=== PATIENT | male | born 1970 ===

== ENCOUNTER 2017-11-07 09:02 | Inpatient (IN) | payer OTHER ==
[2017-11-07] MEDS ORDERED: Albuterol/Ipratropium NEB.SOL* Albuterol 2.5 MG/Ipratropium 0.5 MG 3 ML ONE ×2 (09:07→09:17)
[2017-11-07] MEDS ORDERED: methylPREDNISolone 125 MG* 2 ML VIAL ONE (09:07)
[2017-11-07] MEDS ORDERED: NS 0.9% 1000 ML* 1,000 ML IV ONE (09:07)
[2017-11-07] MEDS ORDERED: methylPREDNISolone 125 MG* 2 ML VIAL IV ONE (09:07)
[2017-11-07] MEDS: Albuterol/Ipratropium NEB.SOL* Albuterol 2.5 MG/Ipratropium 0.5 MG 3 ML INH SCH ×7 (09:13→22:48)
[2017-11-07] MEDS ORDERED: Piperacillin/Tazobac ADVAN(*) 3.375 GM in NS 0.9% 100 ML* 100 ML IVPB ONE (09:16)
[2017-11-07 09:23] LABS: ABS Basophils 0.1 10^3/ul (0-0.2); ABS Eosinophils 0 10^3/ul (0-0.6); ABS Lymphocytes 0.9 10^3/ul (1.0-4.8); ABS Monocytes 1.1 10^3/ul (0-0.8); ABS Neutrophils 18.9 10^3/ul (1.5-7.7); ABS Nucleated RBC 0 10^3/ul; Eosinophil % 0 % (0-6); Hematocrit 45 % (42-52); Hemoglobin 15.1 g/dl (14.0-18.0); Lymphocyte % 4.4 % (25-47); Mean Corpuscular HGB Conc 34 g/dl (31-36); Mean Corpuscular Hemoglobin 29 pg (27-31); Mean Corpuscular Volume 86 fL (80-94); Mean Platelet Volume 8 um3 (7.4-10.4); Nucleated Red Blood Cells % 0; Platelet Count 210 10^3/ul (150-450); Red Blood Count 5.23 10^6/ul (4.0-5.4); Red Cell Distribution Width 15 % (10.5-15)
[2017-11-07] MEDS ORDERED: Magnesium Sulfate 2 GM IV* 2 GM/50 ML BAG IVPB ONE (09:30)
[2017-11-07] MEDS ORDERED: Magnesium Sulfate 2 GM IV* 2 GM/50 ML BAG ONE (09:31)
--- NOTE | 2017-11-07 09:31 | RAD ---
HISTORY: Shortness of breath COMPARISONS: None VIEWS: 1: frontal portable view of the chest at 9:15 AM FINDINGS: LINES AND TUBES: None. CARDIOMEDIASTINAL SILHOUETTE: The cardiomediastinal silhouette is normal for portable technique. PLEURA: The costophrenic angles are sharp. No pleural abnormalities are noted. LUNG PARENCHYMA: There is multifocal and confluent alveolar opacification throughout both lung hughes. ABDOMEN: The upper abdomen is clear. There is no subphrenic gas. BONES AND SOFT TISSUES: No bone or soft tissue abnormalities are noted. IMPRESSION: MULTIFOCAL CONSOLIDATION THROUGHOUT BOTH LUNGS.
[2017-11-07 09:42] LABS: EGFR Non-African American 88.9 (>60)
[2017-11-07] MEDS: Cefepime 2 GM in Dextrose(*) 2 GM/50 ML BAG IV SCH ×2 (11:54→22:19)
[2017-11-07] MEDS: Azithromycin IV(*) 500 MG in NS 0.9% 250 ML* 250 ML IVPB SCH (12:46)
[2017-11-07] MEDS: Enoxaparin(*) 40 MG/0.4 ML SYR SUBCUT SCH (12:47)
[2017-11-07 12:52] LABS: Urine Appearance Clear; Urine Blood Negative (Negative); Urine Color Yellow; Urine Ketones 2+ (Negative); Urine Protein Negative (Negative); Urine Specific Gravity 1.023 (1.010-1.030); Urine Urobilinogen Negative (Negative)
--- NOTE | 2017-11-07 18:09 | ED ---
Iggy Bernard Nilda, scribed for Stef Mishra MD on 11/07/17 at 0935 . Shortness of Breath - HPI Summary HPI Summary: LVL 5 Caveat: Hx and PE limited due to pt in respiratory distress. This patient is a 46 year old M BIBA from [address] [place] [address] accompanied by police with a chief complaint of SOB with wheezing since earlier today. Pt went to [facility] due to respiratory distress and CP for a day. O2Sat was at 80% there. Pt taken to ED. On arrival to ED, pt unable to speak full sentences. He is in respiratory distress. Symptoms aggravated by nothing and minimally alleviated by neb treatment given ACID CORRECTION HAND. No PMHx asthma. - History of Current Complaint Time Seen by Provider: 11/07/17 09:07 Hx Obtained From: EMS, Other: - Nurse Hx From Patient Unobtainable Due To: Extremis - LVL 5 Caveat: Hx and PE limited due to pt in respiratory distress. Onset/Duration: Sudden Onset, Lasting Minutes, Still Present Timing: Constant Current Severity: Severe Dyspnea At: Rest Aggrevating Factors: Nothing Alleviating Factors: Nothing Associated Signs & Symptoms: Wheezing - Allergy/Home Medications Allergies/Adverse Reactions: Allergies Allergy/AdvReac Type Severity Reaction Status Date / Time No Known Allergies Allergy Verified 11/07/17 09:40 Home Medications: Home Medications Artificial Tears* 15 ML BTL [Polyvinyl Alcohol 1.4% OPTH*] 1 drop RIGHT EYE QID 11/07/17 [History Confirmed 11/07/17] DULoxetine DR CAP* [Cymbalta CAP*] 30 mg PO BID 11/07/17 [History Confirmed ] Erythromycin OPTH OINT* [Erythromycin 0.5% OPTH OINT*] 1 applic RIGHT EYE BEDTIME 11/07/17 [History Confirmed 11/07/17] PMH/Surg Hx/FS Hx/Imm Hx Respiratory History: Denies: Hx Asthma EENT History: Denies: Hx Deafness - Family History Known Family History: Positive: Unknown - LVL 5: pt in respiratory distress - Social History Occupation: Unemployed Lives: Prison - [address] [place] [id number] Review of Systems - ROS Summary Review of Systems Summary: LVL 5 Caveat: Hx and PE limited due to pt in respiratory distress. Positive: Chest Pain Positive: Shortness Of Breath, Other - wheezing All Other Systems Reviewed And Are Negative: No Physical Exam - Summary Physical Exam Summary: LVL 5 Caveat: Hx and PE limited due to pt in respiratory distress. VITAL SIGNS: Reviewed. GENERAL: Patient is a well-developed and nourished male who is in acute respiratory distress. HEAD AND FACE: No signs of trauma. No ecchymosis, hematomas or skull depressions. No sinus tenderness. EYES: PERRLA, EOMI x 2, No injected conjunctiva, no nystagmus. EARS: Hearing grossly intact. Ear canals and tympanic membranes are within normal limits. MOUTH: Oropharynx within normal limits. NECK: Supple, trachea is midline, no adenopathy, no JVD, no carotid bruit, no c- spine tenderness, neck with full ROM. CHEST: Symmetric, no tenderness at palpation LUNGS: Tachypenic, bilat wheezing with bilat crackles CVS: Tachycardic, S1 and S2 present, no murmurs or gallops appreciated. ABDOMEN: Soft, non-tender. No signs of distention. No rebound no guarding, and no masses palpated. Bowel sounds are normal. Intercostal abdominal retraction. EXTREMITIES: no edema, no cyanosis or clubbing. NEURO: Lethargic, unable to speak in full sentences, unable to give Hx, GCS 14 SKIN: Dry and warm Triage Information Reviewed: Yes Vital Signs On Initial Exam: Initial Vitals Temp Pulse Resp BP Pulse Ox 98.2 F 89 44 148/78 86 11/07/17 09:03 11/07/17 09:03 11/07/17 09:03 11/07/17 09:03 11/07/17 09:03 Vital Signs Reviewed: Yes Completion Of Physical Exam Limited Due To: Level 5 - LVL 5 Caveat: Hx and PE limited due to pt in respiratory distress. Diagnostics - Vital Signs Vital Signs Temp Pulse Resp BP Pulse Ox 11/07/17 10:00 90 49 97 11/07/17 09:55 40 11/07/17 09:51 95 28 90 11/07/17 09:28 90 34 90 11/07/17 09:27 133/82 11/07/17 09:03 98.2 F 89 44 148/78 86 - Laboratory Lab Results: Lab Results 11/07/17 11/07/17 11/07/17 Range/Units 09:16 09:16 09:16 WBC 21.0 H (3.5-10.8) 10^3/ul RBC 5.23 (4.0-5.4) 10^6/ul Hgb 15.1 (14.0-18.0) g/dl Hct 45 (42-52) % MCV 86 (80-94) fL MCH 29 (27-31) pg MCHC 34 (31-36) g/dl RDW 15 (10.5-15) % Plt Count 210 (150-450) 10^3/ul MPV 8 (7.4-10.4) um3 Neut % (Auto) 89.9 H (38-83) % Lymph % (Auto) 4.4 L (25-47) % [place] % (Auto) 5.4 (1-9) % Eos % (Auto) 0 (0-6) % Baso % (Auto) 0.3 (0-2) % Absolute Neuts (auto) 18.9 H (1.5-7.7) 10^3/ul Absolute Lymphs (auto) 0.9 L (1.0-4.8) 10^3/ul Absolute Monos (auto) 1.1 H (0-0.8) 10^3/ul Absolute Eos (auto) 0 (0-0.6) 10^3/ul Absolute Basos (auto) 0.1 (0-0.2) 10^3/ul Absolute Nucleated RBC 0 10^3/ul Nucleated RBC % 0 Patient Temperature ABG pH (7.35-7.45) ABG pH (Temp Correct) ABG pCO2 (35-45) mmHg ABG pCO2 (Temp Corrct ABG pO2 (80-100) mmHg ABG pO2 (Temp Correct ABG HCO3 (19-31) mmol/L ABG O2 Saturation (95-98) % ABG Base Excess (-2.0-2.0) Respiration Rate Ventilator Type Vent Mode FiO2 Inspiratory Time PEEP Pressure Support Pressure Control EPAP IPAP BiPAP Sodium 134 (133-145) mmol/L Potassium 4.3 (3.5-5.0) mmol/L Chloride 98 L (101-111) mmol/L Carbon Dioxide 26 (22-32) mmol/L Anion Gap 10 (2-11) mmol/L BUN 16 (6-24) mg/dL Creatinine 0.91 (0.67-1.17) mg/dL Est GFR ( Amer) 114.4 (>60) Est GFR (Non-Af Amer) 88.9 (>60) BUN/Creatinine Ratio 17.6 (8-20) Glucose 91 (70-100) mg/dL Lactic Acid (0.5-2.0) mmol/L Calcium 9.8 (8.6-10.3) mg/dL Total Bilirubin 0.90 (0.2-1.0) mg/dL AST 156 H (13-39) U/L ALT 34 (7-52) U/L Alkaline Phosphatase 81 (34-104) U/L Total Creatine Kinase 2812 H (10-223) U/L CK-MB (CK-2) 9.1 H (0.6-6.3) ng/mL Troponin I 0.05 H* (<0.04) ng/mL C-Reactive Protein 220.95 H (< 5.00) mg/L B-Natriuretic Peptide 153 H ( - 100) pg/mL Total Protein 7.3 (6.4-8.9) g/dL Albumin 4.3 (3.2-5.2) g/dL Globulin 3.0 (2-4) g/dL Albumin/Globulin Ratio 1.4 (1-3) Influenza A (Rapid) (Negative) Influenza B (Rapid) (Negative) 11/07/17 11/07/17 11/07/17 Range/Units 09:16 09:30 09:54 WBC (3.5-10.8) 10^3/ul RBC (4.0-5.4) 10^6/ul Hgb (14.0-18.0) g/dl Hct (42-52) % MCV (80-94) fL MCH (27-31) pg MCHC (31-36) g/dl RDW (10.5-15) % Plt Count (150-450) 10^3/ul MPV (7.4-10.4) um3 Neut % (Auto) (38-83) % Lymph % (Auto) (25-47) % [place] % (Auto) (1-9) % Eos % (Auto) (0-6) % Baso % (Auto) (0-2) % Absolute Neuts (auto) (1.5-7.7) 10^3/ul Absolute Lymphs (auto) (1.0-4.8) 10^3/ul Absolute Monos (auto) (0-0.8) 10^3/ul Absolute Eos (auto) (0-0.6) 10^3/ul Absolute Basos (auto) (0-0.2) 10^3/ul Absolute Nucleated RBC 10^3/ul Nucleated RBC % Patient Temperature Not Reportable ABG pH 7.44 (7.35-7.45) ABG pH (Temp Correct) Not Reportable ABG pCO2 34 L (35-45) mmHg ABG pCO2 (Temp Corrct Not Reportable ABG pO2 53 L* (80-100) mmHg ABG pO2 (Temp Correct Not Reportable ABG HCO3 24.3 (19-31) mmol/L ABG O2 Saturation 90.9 L (95-98) % ABG Base Excess -0.4 (-2.0-2.0) Respiration Rate Not Reportable Ventilator Type Not Reportable Vent Mode Not Reportable FiO2 8 Inspiratory Time Not Reportable PEEP Not Reportable Pressure Support Not Reportable Pressure Control Not Reportable EPAP Not Reportable IPAP Not Reportable BiPAP Not Reportable Sodium (133-145) mmol/L Potassium (3.5-5.0) mmol/L Chloride (101-111) mmol/L Carbon Dioxide (22-32) mmol/L Anion Gap (2-11) mmol/L BUN (6-24) mg/dL Creatinine (0.67-1.17) mg/dL Est GFR ( Amer) (>60) Est GFR (Non-Af Amer) (>60) BUN/Creatinine Ratio (8-20) Glucose (70-100) mg/dL Lactic Acid 1.0 (0.5-2.0) mmol/L Calcium (8.6-10.3) mg/dL Total Bilirubin (0.2-1.0) mg/dL AST (13-39) U/L ALT (7-52) U/L Alkaline Phosphatase (34-104) U/L Total Creatine Kinase (10-223) U/L CK-MB (CK-2) (0.6-6.3) ng/mL Troponin I (<0.04) ng/mL C-Reactive Protein (< 5.00) mg/L B-Natriuretic Peptide ( - 100) pg/mL Total Protein (6.4-8.9) g/dL Albumin (3.2-5.2) g/dL Globulin (2-4) g/dL Albumin/Globulin Ratio (1-3) Influenza A (Rapid) Negative (Negative) Influenza B (Rapid) Negative (Negative) Result Diagrams: 11/07/17 09:16 11/07/17 09:16 Lab Statement: Any lab studies that have been ordered have been reviewed, and results considered in the medical decision making process. - Radiology CXR Radiology Interpretation Completed By: Radiologist - CXR, per radiologist, reveals multifocal consolidations throughout both lungs. Dr. Mishra has reviewed this radiology report. - EKG 905 Cardiac Rate: NL EKG Rhythm: Sinus Rhythm - 89 bpm EKG Interpretation: no ST elevation Re-Evaluation - Re-Evaluation First Eval Re-Evaluation Time: 09:48 Change: Improved Comment: Pt feeling better. Pt able to speak in some sentences. Vitals more stable. Course/Dx - Course Assessment/Plan: This patient is a 46 year old M BIBA from [address] [place] [address] [facility] accompanied by police with a chief complaint of SOB with wheezing since earlier today. Per nurse report, pt went to [facility] due to respiratory distress and CP for a day. O2Sat was at 80% there. Pt taken to ED. On arrival to ED, pt unable to speak full sentences. He is in respiratory distress. Symptoms aggravated by nothing and minimally alleviated by neb treatment given ACID CORRECTION HAND. No PMHx asthma. Medications include Cymbalta. 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 Pt was given Solu-Medrol, Zosyn, Magnesium, and multiple duo neb. It seems pt is obtunded and lethargic. With his respiratory distress, I offered pt intubation, however, he said yes but to wait if he turns around and to use intubation as last resort. Pending labs, EKG, and CXR. Test results reveal: WBC 21, CPK of 2812, CRP 220, and BMP of 153. Influenza A and B are negative. An EKG reveals NSR, 89 bpm, no ST elevation. CXR, per radiologist, reveals multifocal consolidations throughout both lungs. Dr. Mishra has reviewed this radiology report. Pt was started on Zosyn and added azithromycin to cover atypical organisms. The pt continues to have duo nebs, and he is in face mask at 8 L. Vitals are much more stable. Therefore, at this point I will hold the endotracheal intubation to keep airway open since he is getting better. Trop 0.05 probably secondary to demand ischemia. At this point I ve discussed the case with Dr. Herrera, who came down and assessed pt. He agrees with management up to this point. He also accepted pt for admission. Pt is stable, is improving but still critical. Dx respiratory failure, bilat PNA r/ o ARSD. - Diagnoses Differential Diagnosis/HQI/PQRI: Positive: Asthma, Bronchitis, CHF, COPD Exacerbation, DE, Pneumonia, Pulmonary Edema Provider Diagnoses: Bilateral pneumonia, r/o ARSD, Respiratory failure - Physician Notifications Discussed Care of Patient With: Deejay Herrera - Cardiology Time Discussed With Above Provider: 09:58 Instructed by Provider To: Admit As Inpatient - to ICU - Critical Care Time Critical Care Time: 75-104 min Discharge - Discharge Plan Condition: Stable Disposition: ADMITTED TO [facility] The documentation as recorded by the Iggy hays Nilda accurately reflects the service I personally performed and the decisions made by , Stef Mishra MD.
--- NOTE | 2017-11-07 19:12 | HP ---
ADMISSION HISTORY AND PHYSICAL: DATE OF ADMISSION: 11/07/17 REASON FOR ADMISSION: Pneumonia with respiratory failure. HISTORY OF PRESENT ILLNESS: The patient is a 46-year-old male who is incarcerated and was brought to the emergency room because of recent history of chest pain and increasing shortness of breath. In the ED, the patient was discovered to have diffuse pulmonary infiltrates and diffuse wheezing. He was treated with bronchodilator therapy and supplemental oxygen. Decision to intubate the patient was initially entertained, but the patient improved after broncho-dilator therapy and intubation was not considered necessary at that time. However, because of the patient's respiratory distress and degree of hypoxemia, admission to the intensive care unit was deemed necessary. There are no other apparent medical problems and the patient denies significant past medical history. OUTPATIENT MEDICATIONS: Cymbalta 30 mg p.o. b.i.d. ALLERGIES: There are no known drug allergies. SOCIAL HISTORY: The patient is currently incarcerated. There are no known issues with recent drug abuse. REVIEW OF SYSTEMS: Noncontributory. PHYSICAL EXAMINATION GENERAL: The patient was somnolent but aroused easily. VITAL SIGNS: Temp 99.3, blood pressure 144/100, heart rate 103, respiratory rate 32, O2 saturation 95% on nasal O2 at 15 L per minute. HEENT: Oropharynx is clear. NECK: Supple. LUNGS: There are coarse crackles in both lungs with expiratory wheezing throughout. CARDIAC: No murmurs or rubs. ABDOMEN: Nondistended. EXTREMITIES: Warm. No cyanosis or edema. ADMISSION DIAGNOSTIC STUDIES/LAB DATA: White count was 21,000. Electrolytes were normal. BUN and creatinine normal. C-reactive protein was 220. CPK was 2812. CK- MB was 9.1. Troponin I was 0.05. EKG showed normal sinus rhythm without acute ST- or T-wave changes. Chest x-ray showed patchy alveolar infiltrates bilateral, but much more predominant on the left. There is no cardiomegaly. IMPRESSION: Community-acquired pneumonia with associated respiratory failure. Pneumonia appears atypical by radiographic appearance. MANAGEMENT PLAN: Pneumonia will be treated with a combination of azithromycin and cefepime and the wheezing will be treated with bronchodilators. Will also evaluate for influenza. The patient will be monitored closely in the ICU for signs of progressive respiratory failure. CRITICAL CARE TIME: Sixty minutes. [id number]/[facility] #: [id number] [facility] HOSPITALKaila
[2017-11-08] MEDS ORDERED: Zolpidem TAB* 5 MG PO ONE (03:55)
[2017-11-08] MEDS: Albuterol/Ipratropium NEB.SOL* Albuterol 2.5 MG/Ipratropium 0.5 MG 3 ML INH SCH ×5 (03:55→19:30)
[2017-11-08 05:31] LABS: Hematocrit 39 % (42-52); Hemoglobin 12.8 g/dl (14.0-18.0); Mean Corpuscular HGB Conc 33 g/dl (31-36); Mean Corpuscular Hemoglobin 29 pg (27-31); Mean Corpuscular Volume 86 fL (80-94); Mean Platelet Volume 8 um3 (7.4-10.4); Platelet Count 196 10^3/ul (150-450); Red Blood Count 4.48 10^6/ul (4.0-5.4); Red Cell Distribution Width 15 % (10.5-15); White Blood Count 25.5 10^3/ul (3.5-10.8)
[2017-11-08 05:51] LABS: EGFR Non-African American 120.4 (>60)
--- NOTE | 2017-11-08 07:53 | RAD ---
INDICATION: Pneumonia. COMPARISON: Comparison is made with a prior study from one day earlier. TECHNIQUE: A portable view of the chest was obtained. FINDINGS: The heart is within normal limits in size. There are dense bilateral alveolar infiltrates. There is suggestion of a trace right pleural effusion. The infiltrates appear increased from the prior exam. IMPRESSION: DENSE BILATERAL ALVEOLAR INFILTRATES DEMONSTRATING INTERVAL PROGRESSION SUGGESTIVE OF PNEUMONIA OR ARDS.
[2017-11-08] MEDS ORDERED: traZODone TAB* 100 MG PO ONE (07:55)
[2017-11-08] MEDS: Cefepime 2 GM in Dextrose(*) 2 GM/50 ML BAG IV SCH (11:34)
[2017-11-08] MEDS: Enoxaparin(*) 40 MG/0.4 ML SYR SUBCUT SCH (11:58)
[2017-11-08] MEDS: Morphine INJ* 2 MG/ML 1 ML SYRINGE (TWO MG - NEW SYRINGE VERSION) IV PRN (11:58)
[2017-11-08] MEDS ORDERED: predniSONE TAB* 50 MG PO SCH (12:00)
[2017-11-08] MEDS ORDERED: Succinylcholine* 20 MG/ML 10 ML VIAL ONE ×2 (12:07→12:09)
[2017-11-08] MEDS ORDERED: fentaNYL* 50 MCG/ML 5 ML VIAL (250 MCG VIAL) ONE (12:09)
[2017-11-08] MEDS ORDERED: Propofol* 10 MG/ML 20 ML BTL IV PUSH ONE (12:09)
[2017-11-08] MEDS ORDERED: VECURONIUM BROMIDE 10 MG INJ ONE (12:09)
[2017-11-08] MEDS ORDERED: Etomidate* 2 MG/ML 20 ML VIAL (40 MG) ONE (12:09)
[2017-11-08] MEDS ORDERED: Midazolam* 1 MG/ML 10 ML VIAL (10 MG) ONE (12:09)
[2017-11-08] MEDS ORDERED: Propofol* 100 ML ONE ×4 (12:22→21:14)
[2017-11-08] MEDS ORDERED: VECURONIUM BROMIDE 10 MG INJ IV ONE ×2 (12:35→18:30)
[2017-11-08] MEDS ORDERED: fentaNYL PCA* 20 ML ONE (12:58)
[2017-11-08] MEDS ORDERED: NS 0.9% IV SCH ×6 (13:00→21:00)
[2017-11-08] MEDS ORDERED: fentaNYL PCA* 20 ML PCA SCH (13:00)
[2017-11-08] MEDS ORDERED: VECURONIUM BROMIDE IV SCH ×6 (13:00→21:00)
--- NOTE | 2017-11-08 13:04 | RAD ---
INDICATION: Intubation COMPARISON: November 08, 2017 TECHNIQUE: Supine AP views were obtained. FINDINGS: Bones/Soft Tissues: There is endotracheal intubation. The endotracheal tube is positioned 4 cm above the elder. Cardiomediastinal: The heart is normal in size. Lungs: Diffuse alveolar opacities, unchanged. There is no pneumothorax. Pleura: No significant effusions. Other: None IMPRESSION: ENDOTRACHEAL TUBE IN PROPER POSITION. DIFFUSE ALVEOLAR OPACITIES, UNCHANGED
[2017-11-08] MEDS ORDERED: Metoprolol Tartrate IV* 1 MG/ML 5 ML VIAL ONE (13:16)
[2017-11-08] MEDS: Metoprolol Tartrate IV* 1 MG/ML 5 ML VIAL IV SCH ×3 (13:35→19:35)
[2017-11-08] MEDS ORDERED: VERAPAMIL 2.5 MG/ML 4 ML VIAL ONE (14:11)
[2017-11-08] MEDS ORDERED: Heparin(*) 1000 UNIT/ML 10 ML VIAL CATH LAB IV ONE (14:11)
[2017-11-08] MEDS ORDERED: Lidocaine 1% INJ* 10 MG/ML 30 ML SDV ONE (14:12)
[2017-11-08] MEDS ORDERED: Heparin 2 UNITS/ML IVPREMIX* 3,000 ML IV ONE (14:12)
[2017-11-08] MEDS ORDERED: Iohexol 350 (CONTRAST) 200 ML MDV IV ONE ×2 (14:12→15:20)
[2017-11-08] MEDS ORDERED: nitroGLYCERIN DRIP* 25,000 MCG/250 ML BTL ONE (14:12)
[2017-11-08] MEDS ORDERED: Heparin 2 UNITS/ML IVPREMIX* 1,000 ML IV ONE (14:42)
[2017-11-08] MEDS ORDERED: Ticagrelor* 90 MG TAB PO ONE (14:43)
[2017-11-08] MEDS ORDERED: Aspirin TAB* 325 MG ONE (14:49)
[2017-11-08] MEDS ORDERED: NS 0.9% 1000 ML* 1,000 ML IV SCH ×2 (16:15→19:28)
--- NOTE | 2017-11-08 17:21 | ECHO ---
Patient: NANETTE CATES [id number] [facility] Rec#: [id number] : 1970 Date: 11/08/2017 Age: 46y Height: 175.26 cm / 69.0 in Weight: 78.02 kg / 172.0 lbs Sex: M BSA: 1.94 Room#: ICU 5 Admit Date#: 11/07/2017 Type: Inpatient Referring: Marianna Gaona MD Reading: Deejay Herrera DO Department Of Sociology Chair: Fozia Chambers RDCS,RDMS Transthoracic Echocardiogram Indication: CP, Respiratory Failure BP: 129/88 HR: 78 Rhythm: NSR Findings History: Smoker, pneumonia Technical Comments: The study quality is fair. The study is technically limited due to patient being intubated and on a ventilator. Left Ventricle: The left ventricular chamber size is normal. Mild concentric left ventricular hypertrophy is observed. Left ventricular systolic function is at the lower limits of normal. The estimated ejection fraction is 50-55%. Normal left ventricular diastolic filling is observed. The basal inferolateral, and apical lateral wall segments are hypokinetic (score 2). The mid inferolateral wall segment is akinetic (score 3). Overall wallmotion score index is 2.33 Left Atrium: The left atrial chamber size is normal. Right Ventricle: The right ventricular chamber size and systolic function are within normal limits. Right Atrium: The right atrial cavity size is normal. Aortic Valve: The aortic valve is trileaflet. Systolic excursion of the aortic valve is normal. There is no evidence of aortic regurgitation. There is no evidence of aortic stenosis. Mitral Valve: The mitral valve leaflets are mildly thickened. There is a trace of mitral regurgitation. There is no evidence of mitral stenosis. Tricuspid Valve: The tricuspid valve leaflets are normal. There is mild tricuspid regurgitation. There is evidence of mild pulmonary hypertension. Pulmonic Valve: The pulmonic valve structure is not well visualized. There is no evidence of pulmonic valve thickening. There is a trace pulmonic regurgitation. There is no pulmonic stenosis. Pericardium: There is no significant pericardial effusion. Aorta: The aortic root appears normal. There is no dilatation of the aortic arch. Pulmonary Artery: The main pulmonary artery is not well visualized. Venous: Unable to accurately comment on the size collapsibility of the IVC as the patient in known to be on mechanical ventilation. Conclusions The left ventricular chamber size is normal. Mild concentric left ventricular hypertrophy is observed. Left ventricular systolic function is at the lower limits of normal. The estimated ejection fraction is 50-55%. There is severe hypokinesis to akinesis of the inferolateral and basal inferior wall The left atrial chamber size is normal. The right ventricular chamber size and systolic function are within normal limits. There is a catheter located in the right ventricle There is mild tricuspid regurgitation. There is evidence of mild pulmonary hypertension. No prior studies available for comparison at time of interpretation. Measurements Name Value Normal Range RVIDd (AP) 2D 2.7 cm (0.9 - 2.6) RVDdMajor (2D) 3.4 cm (2.2 - 4.4) RAd ISD 4CH 4.5 cm (3.4 - 4.9) RA (A4C)W 4.2 cm (2.9 - 4.6) IVSd (2D) 1.1 cm (0.6 - 1) LVPWd (2D) 1.2 cm (0.6 - 1) LVIDd (2D) 4.7 cm (3.6 - 5.4) LVIDs (2D) 3.4 cm - LV FS (2D) 29 % (25 - 45) Aortic Annulus 2.2 cm (1.4 - 2.6) Ao root diameter (2D) 3.1 cm (2.1 - 3.5) Aortic arch 2.2 cm (1.8 - 3.4) LA dimension (AP) 2D 3.3 cm (2.3 - 3.8) LAd ISD 4CH 5.2 cm (2.9 - 5.3) LA ISD 4CH W 4.4 cm (2.5 - 4.5) Name Value Normal Range LA ESV SP 4CH (A/L) 54.68 ml - LA ESV SP 2CH (A/L) 58.73 ml - LA ESV BP (A/L) 57.4 ml - LA ESV BP (A/L) index 29 ml/m2 - LA ESV SP 4CH (MOD) 49.46 ml - LA ESV SP 2CH (MOD) 53.71 ml - LV EDV SP 4CH (MOD) 104.49 ml - LV ESV SP 4CH (MOD) 45.54 ml - EF SP 4CH (MOD) 56.42 % - LV EDV SP 2CH (MOD) 132.51 ml - LV ESV SP 2CH (MOD) 52.02 ml - EF SP 2CH (MOD) 60.74 % - LV EDV BP 117.53 ml - LV ESV BP 48.6 ml - BP EF (MOD) 59 % - Name Value Normal Range MV E-wave Vmax 0.8 m/sec - MV deceleration time 213 msec - MV A-wave Vmax 0.5 m/sec - MV E:A ratio 1.6 ratio - P. vein S-wave Vmax 0.5 m/sec - P. vein D-wave Vmax 0.4 m/sec - P. vein S:D Vmax ratio 1.4 ratio - P. vein A-wave duration 116 msec - LV septal e' Vmax 0.08 m/sec - LV lateral e' Vmax 0.12 m/sec - LV E:e' septal ratio 10 ratio - LV E:e' lateral ratio 7 ratio - Name Value Normal Range AV Vmax 1.2 m/sec - AV VTI 22 cm - AV peak gradient 6 mmHg - AV mean gradient 3.8 mmHg - LVOT Vmax 1.1 m/sec - LVOT VTI 21 cm - LVOT peak gradient 5 mmHg - LVOT mean gradient 2.7 mmHg - JONA Vmax 1.1 m/sec - Name Value Normal Range TR Vmax 2.9 m/sec - TR peak gradient 34 mmHg - RAP 8 mmHg - RVSP 42 mmHg - IVC diameter 2.5 cm - Name Value Normal Range PV Vmax 0.7 m/sec - PV peak gradient 2 mmHg - Wallmotion BAS Not Seen BA Not Seen BAL Not Seen DARLINE Hypokinetic BI Not Seen BIS Not Seen MAS Not Seen MA Not Seen MAL Not Seen MIL Akinetic OR Not Seen MIS Not Seen Not Seen AA Not Seen AL Hypokinetic AI Not Seen APEX Not Seen
[2017-11-08] MEDS: Azithromycin IV(*) 500 MG in NS 0.9% 250 ML* 250 ML IVPB SCH ×2 (17:52→19:25)
--- NOTE | 2017-11-08 17:54 | PN ---
Date of Service: 11/08/17 Critical Care Services: Patient had progressive respiratory insufficiency with respiratory rates upo to 60/min and progressive infltrates on cxrand requiring intubation earlier today. 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 No organism isolated at this time. Vital Signs: Temp Pulse Resp BP SpO2 FiO2 98.0 F 64 47 94/60 93 50 Physical Exam: Gen:unresponsive (on propofol, fentanyl, and vecuronium Lungs: crackles on both sides. No wheezing Extr: Warm. No cyanosis or edema. Fluid Balance (Past 24 Hours): 11/08/17 06:59 Intake Total 3725 Output Total 1780 Balance +1945 Weight 172 lb Intake: IV Fluids 2551 ABX - CEFEPIME 2201 LR 350 IVPB 374 ABX - AZITHROMYCIN 265 ABX - CEFEPIME 109 Oral 800 Output: Phan 1200 Residual 580 Coude 16 Fr 580 Labs: 11/08/17 11/08/17 05:20 05:20 WBC 25.5 Hgb 12.8 Hct 39 Plt Count 196 Sodium 135 Potassium 4.0 Chloride 104 Carbon Dioxide 24 Anion Gap 7 BUN 13 Creatinine 0.70 Glucose 118 Calcium 8.9 Total Bilirubin 0.70 AST 81 ALT 28 Alkaline Phosphatase 69 Total Creatine Kinase 1096 Total Protein 5.9 Albumin 3.4 Globulin 2.5 HIV 1&2 Antibody Nonreactive Studies: Cardiac Cath - as mentioned. Sputum Gram stain: multiple morphologies - culture pending. Nutrition: None since intubation - will start tube feedings Impression: Severe community-acquired pneumonia - bilateral and extensive - No organism isolated at the time, but most likely is viral/atypical. Prognosis very guearded Plan: Continue coverage with cefepime, azithromycin, and steroids. Continue mechanical ventilation - use APRV as primary mode of ventilation. Critical Care Time: 60 minutes (not including time for intubation and central line placement).
[2017-11-08] MEDS: Metoprolol Tartrate TAB* 25 MG FEED TUBE SCH (19:25)
--- NOTE | 2017-11-08 19:40 | CONS ---
CONSULTATION REPORT: DATE OF CONSULT: 11/08/17 REQUESTING PHYSICIAN: Dr. Herrera. CONSULTING SERVICE: Infectious Disease. REASON FOR CONSULTATION: Pneumonia, respiratory failure. IMPRESSION: 1. Pneumonia, community-acquired except for he is incarcerated. He has bilateral infiltrates, which are progressive. It could be viral. His influenza PCR was negative, could also be bacterial including pneumococcus haemophilus. 2. Acute hypoxemic respiratory failure was present on admission. Suspect he may have had influenza in the last week or 2 and this may be a post influenza pneumonia. RECOMMENDATIONS: 1. Agree with cefepime and azithromycin. We will add prednisone 50 mg a day for 5 days for hypoxia and community-acquired pneumonia. 2. Check an HIV antibody. HISTORY OF PRESENT ILLNESS: This is a 46-year-old man admitted with cough and fever. He is incarcerated. He had been complaining of a few days of cough, myalgia, fever, shortness of breath. He was brought to the hospital yesterday with white blood count was 21,000. He received corticosteroids, cefepime, and azithromycin. He had a fever overnight. He is requiring high-flow oxygen. His O2 was 53 on a blood gas yesterday. CO2 was 34. Influenza PCR negative. Blood cultures are negative. A 24-hour sputum culture is pending. He has not otherwise been sick or required hospitalization for an infection and had been well up until few days ago. He has no pain now. He had some loose stools and continues to have muscle aches and shortness of breath. He is on high-flow oxygen now. PAST MEDICAL HISTORY: Depression. MEDICATIONS: 1. Albuterol inhaler. 2. Enoxaparin. 3. Cefepime 2 mg every 12 hours. 4. Azithromycin 500 mg daily. ALLERGIES: No known drug allergies. FAMILY HISTORY: Unknown. SOCIAL HISTORY: He is incarcerated. He is originally from the [facility]. No foreign travel since the age of 4. REVIEW OF SYSTEMS: A 14-point review of systems was negative except as noted above. PHYSICAL EXAM: Vital Signs: Temperature 37.7, heart rate 94, respiratory rate 24, blood pressure 130/80, oxygen saturation 95%, FiO2 of 0.75 and flow rate of 4 L a minute. In general, he is awake, not in distress. Neurologic: He is oriented x3, follows all commands. HEENT: There is no conjunctival hemorrhage. Oropharynx: Without lesions. Neck: Supple without nuchal rigidity. Lymph Nodes: There is no cervical, supraclavicular, inguinal, axillary, or epitrochlear lymphadenopathy. Heart is regular and tachycardic without murmurs. Lungs: There is coarse breath sounds bilaterally without wheeze or rales. Abdomen: Soft, nontender, and nondistended. There are bowel sounds present. Skin: There is no rash or splinter hemorrhages. Musculoskeletal: No spine tenderness to palpation or joint synovitis. DIAGNOSTIC STUDIES/LAB DATA: White blood cell count 25, hemoglobin 12.8, and platelets 196. Creatinine is 0.7. AST is 81. CK is 1000 down from 2800. Please see impressions and recommendations outlined above, which I have discussed with Dr. Herrera. Thanks for asking me to see Mr. Avila in consultation. [id number] #: [id number] MTDD
[2017-11-08] MEDS ORDERED: Vecuronium Bromide* 10 MG in NS 0.9% 100 ML* 100 ML IV SCH (20:00)
--- NOTE | 2017-11-08 20:13 | CONS ---
CC: [facility] * INTERVENTIONAL CARDIOLOGY CONSULTATION NOTE: DATE OF CONSULT: 11/08/17 HISTORY OF PRESENT ILLNESS: A 46-year-old male admitted to the ICU yesterday with respiratory failure and ARDS. He presented with chest pain and shortness of breath, troponin yesterday was negative at 0.05, 0.05. About an hour ago, he had worsening respiratory failure, required intubation. He was noted to have ST elevation on the monitor and EKG demonstrated ST elevation in the inferior leads with right precordial reciprocal ST depression. I was consulted. After IV Lopressor 5 mg x2 heart rate is in the 80s, yet he still has persisting inferior current of injury on EKG, therefore, is undergoing emergent catheterization after placement of an IJ central line by Dr. Herrera to rule out right coronary obstruction and facilitate revascularization. Verbal consent was obtained from the [facility] director of casino by telephone and witnessed, including consent for placement of the central line, cardiac cath, and even possible bypass graft in case he has emergent complications and need for surgery. The patient is intubated and sedated, unable to provide any history. I have reviewed his H and P, there is no mention of any pertinent past medical history. I reviewed the records from the department of corrections, they document wheezing, desaturation into the 80s without history of asthma. He was then transferred to our ER. I reviewed the ER record, there is again no mention of past medical history. MEDICATIONS: Prehospital medications listed include: 1. Artificial tears. 2. Cymbalta 30 b.i.d. 3. Erythromycin ointment. SOCIAL HISTORY: Smoking history is unknown, drug use history unknown. REVIEW OF SYSTEMS: Unobtainable. PHYSICAL EXAM: Currently, the patient is intubated, paralyzed and sedated. He has a Phan catheter. Heart rate is in the 80s, systolic blood pressure 120 to 130. He has bilateral fine crackles. JVP is not elevated. Carotids are palpable without bruits. HEENT: Show an ET tube. He has no xanthelasma, scleral injection, or jaundice. Cardiac Exam: Unremarkable without gallop, murmur, or rub. Abdomen: Soft, nontender without bruit. I can feel the aorta. Radial, femoral, and pedal pulses are palpable. He has no cyanosis, clubbing, or edema. DIAGNOSTIC STUDIES/LAB DATA: CBC today shows a white count of 25,500, hemoglobin 12.8, normal platelet count. BMP today, creatinine 0.7, GFR normal. CPK yesterday was 2812, today it is down to 1096. MB yesterday was 9.1. Troponin yesterday 0.05, 0.05. BNP yesterday was high at 153. Blood gas yesterday, pH 7.44, pCO2 34, pO2 53. Chest x-ray by my review shows bilateral diffuse interstitial infiltrates with a ground-glass pattern without upper lobe revascularization, therefore not likely heart failure. IMPRESSION: Inferior wall ST elevation infarct. This is occurring in the setting of respiratory failure with correction of hypoxia, and EKG without improvement with slowing of his heart rate with IV beta blockade. The likelihood of type 1 infarct with acute coronary syndrome is therefore significant. He will undergo emergent catheterization with the intent of revascularization if necessary. We will also place a [place]orena catheter through the IJ access to facilitate hemodynamic management by allowing measurement of preload and its relationship to his lung infiltrates. Verbal consent was obtained from the medical equipment technician of the [facility]. [id number]/CPS #: [id number] MTDD
[2017-11-08] MEDS: methylPREDNISolone SOD 40 MG* 1 ML VIAL IV SCH (21:13)
[2017-11-08] MEDS: Chlorhexidine MOUTHWASH 0.12%* 15 ML UDC TOPICAL SCH (21:14)
[2017-11-08] MEDS: VECURONIUM BROMIDE IV SCH (21:52)
[2017-11-08] MEDS: NS 0.9% IV SCH (21:52)
[2017-11-09] MEDS: Metoprolol Tartrate TAB* 25 MG FEED TUBE SCH ×5 (01:22→18:16)
[2017-11-09] MEDS: Chlorhexidine MOUTHWASH 0.12%* 15 ML UDC TOPICAL SCH ×7 (01:23→23:05)
[2017-11-09] MEDS: Cefepime 2 GM in Dextrose(*) 2 GM/50 ML BAG IV SCH ×3 (01:25→23:05)
--- NOTE | 2017-11-09 01:38 | PRO ---
DATE OF PROCEDURE: 11/08/17 - ROOM #ICU-05 PROCEDURE: Endotracheal intubation. DESCRIPTION OF PROCEDURE: This patient is a 46-year-old male who was admitted with severe community-acquired pneumonia, which has progressed to the point where respirations were 60 / minute associated with O2 desaturation. Endotracheal intubation was subsequently performed at the bedside, after sedation with 20 mg of etomidate and 250 mcg of fentanyl. A 7.5-Tongan endotracheal tube was inserted into the upper airway under videoscopic control, and the location of the tube was verified by exhaled CO2 analysis. Postinsertion chest x-ray showed the tip of the tube approximately midway from the thoracic inlet to the elder. The patient had multiple coughing fits after the tube was inserted, and was not awake, so paralysis with vecuronium was initiated to facilitate ventilation. The patient will be sedated with propofol and fentanyl, and the paralysis will be discontinued as soon as feasible. [id number] #: [id number] MTDD
[2017-11-09] MEDS: Albuterol/Ipratropium NEB.SOL* Albuterol 2.5 MG/Ipratropium 0.5 MG 3 ML INH SCH ×7 (01:56→23:13)
[2017-11-09] MEDS ORDERED: Atropine SYRINGE* 0.1 MG/ML 10 ML SYRINGE (1 MG) ONE (02:29)
[2017-11-09] MEDS: Propofol* 1000 MG (10 MG/ML 100 ml) @ Per Protocol (in ICU Pyxis) IV SCH ×6 (03:17→23:40)
[2017-11-09 06:11] LABS: ABS Basophils 0 10^3/ul (0-0.2); ABS Eosinophils 0 10^3/ul (0-0.6); ABS Lymphocytes 0.4 10^3/ul (1.0-4.8); ABS Monocytes 0.3 10^3/ul (0-0.8); ABS Neutrophils 11.9 10^3/ul (1.5-7.7); ABS Nucleated RBC 0 10^3/ul; Eosinophil % 0.1 % (0-6); Hematocrit 34 % (42-52); Hemoglobin 11.5 g/dl (14.0-18.0); Lymphocyte % 2.8 % (25-47); Mean Corpuscular HGB Conc 34 g/dl (31-36); Mean Corpuscular Hemoglobin 30 pg (27-31); Mean Corpuscular Volume 88 fL (80-94); Mean Platelet Volume 9 um3 (7.4-10.4); Nucleated Red Blood Cells % 0.1; Platelet Count 181 10^3/ul (150-450); Red Blood Count 3.84 10^6/ul (4.0-5.4); Red Cell Distribution Width 16 % (10.5-15); White Blood Count 12.6 10^3/ul (3.5-10.8)
[2017-11-09 06:24] LABS: EGFR Non-African American 165.9 (>60)
[2017-11-09] MEDS: VECURONIUM BROMIDE IV SCH (06:50)
[2017-11-09] MEDS: NS 0.9% IV SCH (06:50)
--- NOTE | 2017-11-09 08:01 | RAD ---
HISTORY: Pneumonia COMPARISONS: November 08, 2017 VIEWS: 1: frontal portable view of the chest at 6:04 AM FINDINGS: LINES AND TUBES: An endotracheal tube is noted with the tip overlying the trachea between the clavicles and the elder. A gastric tube is noted. The tip is below the [id number] of the current examination, but is below the diaphragm. What appears to be a pulmonary arterial catheter is noted from a right internal jugular vein approach. The tip is in the expected location of the main pulmonary artery versus pulmonary arterial outflow tract. CARDIOMEDIASTINAL SILHOUETTE: The cardiomediastinal silhouette is normal for portable technique. PLEURA: The costophrenic angles are sharp. No pleural abnormalities are noted. LUNG PARENCHYMA: There is a diffuse pattern of alveolar opacification throughout both lungs. Similar to the previous examination. ABDOMEN: The upper abdomen is clear. There is no subphrenic gas. BONES AND SOFT TISSUES: No bone or soft tissue abnormalities are noted. IMPRESSION: 1. LINES AND TUBES ABOVE. 2. AGAIN NOTED IS DIFFUSE PATTERN OF AIRSPACE DISEASE THROUGHOUT BOTH LUNGS. THE DIFFERENTIAL INCLUDING INFECTIOUS CONSOLIDATION WELL NONCARDIOGENIC PULMONARY ALVEOLAR EDEMA
[2017-11-09] MEDS ORDERED: Midazolam* 1 MG/ML 2 ML VIAL (2 MG) IV ONE (08:34)
[2017-11-09] MEDS ORDERED: Midazolam IV for DRIP* 100 MG in NS 0.9% 100 ML* 80 ML IV SCH (09:00)
[2017-11-09] MEDS ORDERED: Midazolam PREMIX BAG 1 MG/ML* 100 MG/100 ML BAG IV SCH (09:00)
[2017-11-09] MEDS ORDERED: Famotidine IV * 20 MG in NS 0.9% 100 ML* 100 ML IVPB SCH (09:00)
[2017-11-09] MEDS: Famotidine IV* 10 MG/ML 2 ML (20 mg) IV SCH (09:25)
[2017-11-09] MEDS: methylPREDNISolone SOD 40 MG* 1 ML VIAL IV SCH (09:31)
--- NOTE | 2017-11-09 11:10 | PN ---
Subjective Date of Service: 11/09/17 Interval History: f/u OK no culprit, suspect infectious related myocarditis Intubated, sedated Has not received metoprolol due to low HR cTnI peaked at 4.5 Tele: sinus bradycardia, 4 beats NSVT overnight Medications Active Medications: Albuterol/Ipratropium (Duoneb (Albuterol 2.5 Mg/Ipratropium 0.5 Mg)) 1 neb INH Q4H [facility] Last Admin: 11/09/17 06:22 Dose: 1 neb Chlorhexidine Gluconate (Peridex Mouth Wash 0.12%*) 15 ml TOPICAL Q4H [facility] Last Admin: 11/09/17 06:18 Dose: 15 ml Enoxaparin Sodium (Lovenox(*)) 40 mg SUBCUT Q24H [facility] Last Admin: 11/08/17 11:58 Dose: 40 mg Famotidine (Pepcid Iv*) 20 mg IV DAILY [facility] Last Admin: 11/09/17 09:25 Dose: 20 mg Cefepime HCl (Maxipime 2 Gm In Dextrose Duplex (*)) 2 gm in 50 mls @ 100 mls/ hr IV Q12H [facility] Last Admin: 11/09/17 01:25 Dose: 100 mls/hr Lactated Ringer's (Lactated Ringers 1000 Ml Bag*) 1,000 mls @ 50 mls/hr IV PER RATE [facility] Last Admin: 11/09/17 07:21 Dose: 50 mls/hr Azithromycin 500 mg/ Sodium (Chloride) 250 mls @ 250 mls/hr IVPB 1800 [facility] Last Admin: 11/08/17 19:25 Dose: Not Given Fentanyl Citrate (Fentanyl Prison Keeper*) 20 mls @ 2 mls/hr TECHNOLOGY ADMINISTRATOR .change Q24H TOYA; 100 MCG/HR PRN Reason: Protocol Vecuronium Kyle 50 mg/ (Sodium Chloride) 500 mls @ 56.44 mls/hr IV Q9H TOYA; 1.2 MCG/KG/MIN PRN Reason: Protocol Last Admin: 11/09/17 06:50 Dose: Not Given Propofol (Diprivan*) 100 mls @ 0 mls/hr IV .(Initial Rate) TOYA; 0 MCG/KG/MIN PRN Reason: Protocol Last Admin: 11/09/17 06:12 Dose: 32.8 mls/hr Midazolam HCl (Versed Premix Bag 1 Mg/Ml*) 100 mg in 100 mls @ 3 mls/hr IV .Q24HR TOYA; 3 MG/HR PRN Reason: Protocol Last Admin: 11/09/17 09:46 Dose: 3 mls/hr Methylprednisolone Sodium Succinate (Solu-Medrol 40 Mg) 50 mg IV DAILY [facility] Last Admin: 11/09/17 09:31 Dose: 50 mg Metoprolol Tartrate (Lopressor Tab*) 25 mg FEED TUBE Q6H TOYA Last Admin: 11/09/17 06:50 Dose: Not Given Morphine Sulfate (Morphine Inj (Syringe)*) 2 mg IV Q2H PRN PRN Reason: DISCOMFORT Last Admin: 11/08/17 11:58 Dose: 2 mg Objective Vital Signs: Temp Pulse Resp BP Pulse Ox 98.0 F 55 20 91/58 94 11/09/17 08:00 11/09/17 10:21 11/09/17 10:00 11/09/17 10:15 11/09/17 10:21 Oxygen Devices in Use Now: Mechanical Ventilator Appearance: intubated, sedated Neck: Trachea Midline, - Respiratory: - - transmitted and coarse diffuse breath sounds, no obvious wheeze Cardiovascular: RRR, No Edema, - - uncertain jvp Abdominal: NL Sounds; No Tenderness; No Distention Extremities: No Edema, No Clubbing, Cyanosis Skin: No Rash or Ulcers Neurological: - - sedated Laboratory Results: 11/09/17 05:23 11/09/17 09:10 Total Bilirubin 0.70 mg/dL (0.2-1.0) 11/08/17 05:20 AST 81 U/L (13-39) H 11/08/17 05:20 ALT 28 U/L (7-52) 11/08/17 05:20 Alkaline Phosphatase 69 U/L (34-104) 11/08/17 05:20 CK-MB (CK-2) 48.4 ng/mL (0.6-6.3) H 11/09/17 05:23 B-Natriuretic Peptide 153 pg/mL (-100) H 11/07/17 09:16 Total Protein 5.9 g/dL (6.4-8.9) L 11/08/17 05:20 Albumin 3.4 g/dL (3.2-5.2) 11/08/17 05:20 Globulin 2.5 g/dL (2-4) 11/08/17 05:20 Albumin/Globulin Ratio 1.4 (1-3) 11/08/17 05:20 11/07/17 11/08/17 11/08/17 11:45 17:40 23:00 Troponin I 0.05 H* 4.47 H* 3.20 H* 11/09/17 05:23 Troponin I 2.15 H* Laboratory Results - last 24 hr 11/08/17 11/08/17 11/08/17 05:20 17:40 20:02 WBC RBC Hgb Hct MCV MCH MCHC RDW Plt Count MPV Neut % (Auto) Lymph % (Auto) [place] % (Auto) Eos % (Auto) Baso % (Auto) Absolute Neuts (auto) Absolute Lymphs (auto) Absolute Monos (auto) Absolute Eos (auto) Absolute Basos (auto) Absolute Nucleated RBC Nucleated RBC % Patient Temperature Not Reportable ABG pH 7.26 L ABG pH (Temp Correct) Not Reportable ABG pCO2 69 H ABG pCO2 (Temp Corrct Not Reportable ABG pO2 112 H ABG pO2 (Temp Correct Not Reportable ABG HCO3 26.5 ABG O2 Saturation 99.2 H ABG Base Excess 2.1 H Respiration Rate 20 O2 Delivery Device C2 ventilator Ventilator Type 450 Vent Mode Cmv FiO2 75 Inspiratory Time 1.0 PEEP 5 Pressure Support Not Reportable Pressure Control Not Reportable EPAP Not Reportable IPAP Not Reportable BiPAP Not Reportable Sodium Potassium Chloride Carbon Dioxide Anion Gap BUN Creatinine Est GFR ( Amer) Est GFR (Non-Af Amer) BUN/Creatinine Ratio Glucose Calcium Total Creatine Kinase 846 H CK-MB (CK-2) 34.4 H Troponin I 4.47 H* HIV 1&2 Antibody Nonreactive 11/08/17 11/08/17 11/09/17 20:04 23:00 05:23 WBC 12.6 H RBC 3.84 L Hgb 11.5 L Hct 34 L MCV 88 MCH 30 MCHC 34 RDW 16 H Plt Count 181 MPV 9 Neut % (Auto) 94.6 H Lymph % (Auto) 2.8 L [place] % (Auto) 2.3 Eos % (Auto) 0.1 Baso % (Auto) 0.2 Absolute Neuts (auto) 11.9 H Absolute Lymphs (auto) 0.4 L Absolute Monos (auto) 0.3 Absolute Eos (auto) 0 Absolute Basos (auto) 0 Absolute Nucleated RBC 0 Nucleated RBC % 0.1 Patient Temperature Not Reportable ABG pH 7.20 L ABG pH (Temp Correct) Not Reportable ABG pCO2 80 H* ABG pCO2 (Temp Corrct Not Reportable ABG pO2 91 ABG pO2 (Temp Correct Not Reportable ABG HCO3 25.7 ABG O2 Saturation 97.5 ABG Base Excess 1.1 Respiration Rate 14 O2 Delivery Device Ventilator Type cmv Vent Mode Not Reportable FiO2 75 Inspiratory Time Not Reportable PEEP 5 Pressure Support Not Reportable Pressure Control Not Reportable EPAP Not Reportable IPAP Not Reportable BiPAP Not Reportable Sodium Potassium Chloride Carbon Dioxide Anion Gap BUN Creatinine Est GFR ( Amer) Est GFR (Non-Af Amer) BUN/Creatinine Ratio Glucose Calcium Total Creatine Kinase 771 H CK-MB (CK-2) 48.8 H Troponin I 3.20 H* HIV 1&2 Antibody negative 11/09/17 11/09/17 11/09/17 05:23 06:45 09:10 WBC RBC Hgb Hct MCV MCH MCHC RDW Plt Count MPV Neut % (Auto) Lymph % (Auto) [place] % (Auto) Eos % (Auto) Baso % (Auto) Absolute Neuts (auto) Absolute Lymphs (auto) Absolute Monos (auto) Absolute Eos (auto) Absolute Basos (auto) Absolute Nucleated RBC Nucleated RBC % Patient Temperature ABG pH ABG pH (Temp Correct) ABG pCO2 ABG pCO2 (Temp Corrct ABG pO2 ABG pO2 (Temp Correct ABG HCO3 ABG O2 Saturation ABG Base Excess Respiration Rate O2 Delivery Device Ventilator Type Vent Mode FiO2 Inspiratory Time PEEP Pressure Support Pressure Control EPAP IPAP BiPAP Sodium 138 Potassium TNP TNP TNP Chloride 106 Carbon Dioxide 27 Anion Gap 5 BUN 7 Creatinine 0.53 L Est GFR ( Amer) 213.4 Est GFR (Non-Af Amer) 165.9 BUN/Creatinine Ratio 13.2 Glucose 125 H Calcium 8.7 Total Creatine Kinase 520 H CK-MB (CK-2) 48.4 H Troponin I 2.15 H* HIV 1&2 Antibody Diagnostic Imaging: Coronary angiogram 11/08/2017: No CAD Echocardiogram 11/08/2017: LVEF 50-55% with severe hypokinesis to akinesis of basal inferior and inferolateral wall, no significant valvular disease noted. CXR today: diffuse bilateral alveolar patchy opacification 11/09/2017: CO 8.5, CI 4.4, 41/20, PCWP 14 mmHg EKG Data: EKG 11/08/2017: NSR, Inferoposterior STEMI. Repeat post-angiogram showing no CAD (grossly unchanged) Assessment/Plan Ayaz Avila is a 46 year old man admitted with severe bilateral pneumonia/ ARDS with suspected infectious related myocarditis of the basal inferior and inferolateral wall, cTNI peaked 4.5, LVEF 50-55%, no sustained arrhythmias or pressor requirements - Continue metoprolol with holding parameters as prescribed - Check EKG now and then daily EKG and troponin levels (ordered) - Overall medical care per Picture Booker - Discussed with Dr. Prakash Herrera Thank you for allowing me to participate in the cardiovascular care of this patient. Please do not hesitate to contact me with questions or concerns.
[2017-11-09] MEDS: Enoxaparin(*) 40 MG/0.4 ML SYR SUBCUT SCH (11:32)
[2017-11-09] MEDS: fentaNYL PCA* 20 ML PCA SCH ×2 (14:09→22:51)
--- NOTE | 2017-11-09 17:40 | PN ---
Date of Service: 11/09/17 Critical Care Services: Patient has shown gradual improvement over past 18 hours - now off paralysis and ventilated with APRV - FIO2 down to 40% with SpO2 in mid 90s. Has an apparent myocarditis, but troponins are decreasing. No evidence of left heart failure (wedge pressures in mid-teens). Vital Signs: Temp Pulse Resp BP SpO2 FiO2 97.6 F 51 17 107/73 97 40 Physical Exam: Gen:Unresponsive (sedated with propofol. midazolam, and fentanyl) HEENT: Pupils midposition and responsive Lungs:Crackles both sides Extremities:No cyanosis or edema Fluid Balance (Past 24 Hours): 11/09/17 06:59 Intake Total 1958.7 Output Total 2905 Balance -946.3 Weight 171 lb Intake: IV Fluids 599 ABX - CEFEPIME 14 KVO 157 LR NS (0.9%) 428 IVPB 213 ABX - AZITHROMYCIN ABX - CEFEPIME 163 NS (0.9%) 50 Medicated IV 746.7 CC - Propofol/Diprivan 529 CC - Vecuronium 217.7 versed Oral 400 Output: Phan 2905 Residual Coude 16 Fr Labs: 11/08/17 11/09/17 11/09/17 23:00 05:23 05:23 WBC 12.6 H Hgb 11.5 L Hct 34 L Plt Count 181 Sodium 138 Potassium TNP Chloride 106 Carbon Dioxide 27 BUN 7 Creatinine 0.53 Glucose 125 Calcium 8.7 Total Creatine Kinase 771 H 520 CK-MB (CK-2) 48.8 H 48.4 Troponin I 3.20 2.15 Studies: CXR: Some improvement, but could be from the ventilator stretch. All cultures negative wso far. Urine negative for legionella and pneumococcal antigens. Nutrition: None Impression: Showing signs of improvement (both pulmonary and cardiac) but still no pathogen isolated. Plan: Continue APRV ventilation overnight (for continued recruitment)- In AM tomorrow , will lighten sedation and determine weanability. Critical Care Time: 60 minutes
[2017-11-09] MEDS: Azithromycin IV(*) 500 MG in NS 0.9% 250 ML* 250 ML IVPB SCH (18:18)
[2017-11-10] MEDS: Metoprolol Tartrate TAB* 25 MG FEED TUBE SCH ×5 (00:42→23:49)
--- NOTE | 2017-11-10 00:44 | CATH ---
CC: [facility] CATH REPORT: DATE OF PROCEDURE: 11/08/17 [facility] PROCEDURES: Right radial artery access, bilateral selective coronary cineangiography, left heart cat heterization, left ventriculography, right heart catheterization utilizing RIJ sheath placed by Dr. Deon meade in the ICU. HISTORY: A 46-year-old male presenting with acute respiratory failure with suspected ARDS. Due to p rogressive respiratory failure, he required intubation. On the monitor he was noted to have ST elevat ion, 12-lead EKG showed a change from admission with inferior and lateral ST segment elevation. I wa s consulted. He was brought to the laborer [facility] for emergent catheterization for suspected type 1 infarc t. Right heart catheterization to help manage his filling pressures given his ARDS was requested by Kaila Herrera, a preexisting right internal jugular sheath was sterilely exchanged for a new sheath throu gh which right heart catheterization was performed after left heart catheterization. PROCEDURE ACCESS: Right radial artery sheath 6F slender. The radial was relatively small, it did hunt ve spasm improved with intraarterial nitroglycerin. DIAGNOSTIC CATHETERS: 5F TIG4, 4F pigtail. After left heart cath, right-sided cath was performed using a 7.5-[place]mani thermodilution [place]orena cat heter passed with fluoroscopy through the right heart chambers and pressures were recorded. HEMODYNAMICS: LV 96/3-10, no aortic valve gradient on pullback. Right-sided pressures post left heart cath, RA mean 6, RV 39/1-7, wedge mean 9 with A 25 V 13, PA 38/ 5, mean 24. Post procedure, the [place] and sheath were secured. Hemostatic band was used for the right radial artery puncture. ANGIOGRAPHY: Right brachial artery: The right radial is relatively small in caliber, but sufficient in size. The ulnar is large. Left main: The left main is short, normal. LAD: The LAD is large, extends to the apex, it supplies a moderate diagonal branch which has no sten osis, the LAD extends to the apex, has no stenosis. Circumflex: The circumflex is large, not dominant, with a large ramus, a large marginal and a small posterolateral, the circumflex has no stenosis. RCA: The RCA is dominant, large, with a large PDA followed by a moderate bifurcated posterolateral, the RCA has no stenosis. LV Gram: There is ventricular tachycardia during the injection, post injection there is a post PVC c ontraction, which suggests hypokinesis of the mid inferior wall. I cannot estimate the ejection frac tion off this ventriculogram, because of ectopy. CONCLUSION: 1. No obstructive coronary artery disease. No angiographic evidence of a culprit lesion. 2. Probable inferior wall motion abnormality. 3. Normal filling pressures with mild pulmonary arterial hypertension in the setting of suspected AR DS. 4. Suspected myocarditis, no evidence of acute infarct. [id number]/[facility] #: [id number]
[2017-11-10] MEDS: Propofol* 1000 MG (10 MG/ML 100 ml) @ Per Protocol (in ICU Pyxis) IV SCH ×9 (03:12→23:49)
[2017-11-10] MEDS: Chlorhexidine MOUTHWASH 0.12%* 15 ML UDC TOPICAL SCH ×6 (03:12→22:16)
[2017-11-10] MEDS: Albuterol/Ipratropium NEB.SOL* Albuterol 2.5 MG/Ipratropium 0.5 MG 3 ML INH SCH ×6 (03:45→23:28)
[2017-11-10 06:16] LABS: Hematocrit 32 % (42-52); Hemoglobin 10.9 g/dl (14.0-18.0); Mean Corpuscular HGB Conc 34 g/dl (31-36); Mean Corpuscular Hemoglobin 30 pg (27-31); Mean Corpuscular Volume 87 fL (80-94); Mean Platelet Volume 9 um3 (7.4-10.4); Platelet Count 173 10^3/ul (150-450); Red Blood Count 3.65 10^6/ul (4.0-5.4); Red Cell Distribution Width 15 % (10.5-15); White Blood Count 13.3 10^3/ul (3.5-10.8)
[2017-11-10 06:29] LABS: EGFR Non-African American 149.5 (>60)
[2017-11-10] MEDS: fentaNYL PCA* 20 ML PCA SCH (07:47)
[2017-11-10] MEDS: Famotidine IV* 10 MG/ML 2 ML (20 mg) IV SCH (07:52)
[2017-11-10] MEDS: methylPREDNISolone SOD 40 MG* 1 ML VIAL IV SCH (07:54)
--- NOTE | 2017-11-10 08:24 | RAD ---
HISTORY: Pneumonia COMPARISONS: November 09, 2017 VIEWS: 1: frontal portable view of the chest at 6:13 AM FINDINGS: LINES AND TUBES: An endotracheal tube is noted with the tip overlying the trachea at the level of the clavicles. A gastric tube is noted. The tip is below the uyoac-qw-vlxq of the current examination, but is below the diaphragm. A pulmonary arterial catheter is noted with the tip overlying the expected location of the main pulmonary artery/pulmonary artery outflow tract. CARDIOMEDIASTINAL SILHOUETTE: The cardiomediastinal silhouette is normal for portable technique. PLEURA: The costophrenic angles are sharp. No pleural abnormalities are noted. LUNG PARENCHYMA: There is mild patchy alveolar opacities throughout both lungs, improved from the November 09, 2017 examination. ABDOMEN: The upper abdomen is clear. There is no subphrenic gas. BONES AND SOFT TISSUES: No bone or soft tissue abnormalities are noted. IMPRESSION: 1. LINES AND TUBES ABOVE. 2. DIFFUSE AIRSPACE DISEASE, WITH IMPROVED AERATION COMPARED TO NOVEMBER 09, 2014
[2017-11-10] MEDS: VECURONIUM BROMIDE IV SCH (11:13)
[2017-11-10] MEDS: NS 0.9% IV SCH (11:13)
--- NOTE | 2017-11-10 11:15 | PN ---
Subjective Date of Service: 11/10/17 Interval History: f/u [place] no culprit, suspect infectious related myocarditis Intubated, sedated Has not received metoprolol due to low HR FIO2 30% PAP on swan ~ 40/20, not using wedge or venous 02 levels, may be removed soon cTnI continues to trend down EKG unchanged from yesterday Tele: sb/sr, no arrhythmias overnight Medications Active Medications: Albuterol/Ipratropium (Duoneb (Albuterol 2.5 Mg/Ipratropium 0.5 Mg)) 1 neb INH Q4H [facility] Last Admin: 11/10/17 08:32 Dose: 1 neb Chlorhexidine Gluconate (Peridex Mouth Wash 0.12%*) 15 ml TOPICAL Q4H [facility] Last Admin: 11/10/17 05:26 Dose: 15 ml Enoxaparin Sodium (Lovenox(*)) 40 mg SUBCUT Q24H [facility] Last Admin: 11/09/17 11:32 Dose: 40 mg Famotidine (Pepcid Iv*) 20 mg IV DAILY [facility] Last Admin: 11/10/17 07:52 Dose: 20 mg Cefepime HCl (Maxipime 2 Gm In Dextrose Duplex (*)) 2 gm in 50 mls @ 100 mls/ hr IV Q12H [facility] Last Admin: 11/09/17 23:05 Dose: 100 mls/hr Lactated Ringer's (Lactated Ringers 1000 Ml Bag*) 1,000 mls @ 50 mls/hr IV PER RATE [facility] Last Admin: 11/10/17 01:52 Dose: 50 mls/hr Azithromycin 500 mg/ Sodium (Chloride) 250 mls @ 250 mls/hr IVPB 1800 [facility] Last Admin: 11/09/17 18:18 Dose: 250 mls/hr Fentanyl Citrate (Fentanyl Pump Erector*) 20 mls @ 2 mls/hr TELEGRAPH AND TELETYPE OPERATOR .change Q24H TOYA; 100 MCG/HR PRN Reason: Protocol Last Admin: 11/10/17 07:47 Dose: 2 mls/hr Propofol (Diprivan*) 100 mls @ 0 mls/hr IV .(Initial Rate) TOYA; 0 MCG/KG/MIN PRN Reason: Protocol Last Admin: 11/10/17 10:12 Dose: 32.8 mls/hr Midazolam HCl (Versed Premix Bag 1 Mg/Ml*) 100 mg in 100 mls @ 3 mls/hr IV .Q24HR TOYA; 3 MG/HR PRN Reason: Protocol Last Admin: 11/09/17 09:46 Dose: 3 mls/hr Methylprednisolone Sodium Succinate (Solu-Medrol 40 Mg) 50 mg IV DAILY [facility] Last Admin: 11/10/17 07:54 Dose: 50 mg Metoprolol Tartrate (Lopressor Tab*) 25 mg FEED TUBE Q6H [facility] Last Admin: 11/10/17 05:13 Dose: Not Given Morphine Sulfate (Morphine Inj (Syringe)*) 2 mg IV Q2H PRN PRN Reason: DISCOMFORT Last Admin: 11/08/17 11:58 Dose: 2 mg Objective Vital Signs: Temp Pulse Resp BP Pulse Ox 98.4 F 60 14 110/73 97 11/10/17 08:00 11/10/17 11:00 11/10/17 10:58 11/10/17 11:00 11/10/17 11:00 Oxygen Devices in Use Now: Mechanical Ventilator Appearance: intubated, sedated Neck: Trachea Midline, - Respiratory: - - transmitted and coarse diffuse breath sounds, no obvious wheeze Cardiovascular: RRR, No Edema, - - uncertain jvp Abdominal: NL Sounds; No Tenderness; No Distention Extremities: No Edema, No Clubbing, Cyanosis Skin: No Rash or Ulcers Neurological: - - sedated Laboratory Results: 11/10/17 05:40 11/10/17 07:43 Total Bilirubin 0.70 mg/dL (0.2-1.0) 11/08/17 05:20 AST 81 U/L (13-39) H 11/08/17 05:20 ALT 28 U/L (7-52) 11/08/17 05:20 Alkaline Phosphatase 69 U/L (34-104) 11/08/17 05:20 CK-MB (CK-2) 48.4 ng/mL (0.6-6.3) H 11/09/17 05:23 B-Natriuretic Peptide 153 pg/mL (-100) H 11/07/17 09:16 Total Protein 5.9 g/dL (6.4-8.9) L 11/08/17 05:20 Albumin 3.4 g/dL (3.2-5.2) 11/08/17 05:20 Globulin 2.5 g/dL (2-4) 11/08/17 05:20 Albumin/Globulin Ratio 1.4 (1-3) 11/08/17 05:20 11/07/17 11/08/17 11/08/17 11:45 17:40 23:00 Troponin I 0.05 H* 4.47 H* 3.20 H* 11/09/17 11/10/17 05:23 05:40 Troponin I 2.15 H* 1.38 H* Diagnostic Imaging: Coronary angiogram 11/08/2017: No CAD Echocardiogram 11/08/2017: LVEF 50-55% with severe hypokinesis to akinesis of basal inferior and inferolateral wall, no significant valvular disease noted. CXR today: diffuse bilateral alveolar patchy opacification 11/09/2017: CO 8.5, CI 4.4, 41/20, PCWP 14 mmHg EKG Data: EKG 11/08/2017: NSR, Inferoposterior STEMI. Repeat post-angiogram showing no CAD (grossly unchanged) Assessment/Plan Ayaz Avila is a 46 year old man admitted with severe bilateral pneumonia/ ARDS with suspected infectious related myocarditis of the basal inferior and inferolateral wall, cTNI peaked 4.5, LVEF 50-55%, no sustained arrhythmias or pressor requirements - Use metoprolol if able to tolerate from rate/hemodynamic standpoint - Continue daily EKG,telemetry and troponin levels - Overall medical care per Back Closer Thank you for allowing me to participate in the cardiovascular care of this patient. Please do not hesitate to contact me with questions or concerns.
[2017-11-10] MEDS: Cefepime 2 GM in Dextrose(*) 2 GM/50 ML BAG IV SCH ×2 (11:33→22:16)
[2017-11-10] MEDS: Enoxaparin(*) 40 MG/0.4 ML SYR SUBCUT SCH (11:34)
--- NOTE | 2017-11-10 14:28 | PN ---
Critical Care Services: Continues on ventilator, but there are signs of improvement (lower O2 requirement, improved CXR). Vital Signs: Temp Pulse Resp BP SpO2 FiO2 98.4 F 61 16 116/76 97 40 Physical Exam: Gen:Unresponsive (on propofol and versed) Lungs: Fine, end-inspiratory crackles on both sides. Extremities:No cyanosis or edema. Fluid Balance (Past 24 Hours): 11/10/17 06:59 Intake Total 3388.3 Output Total 1000 Balance 2388.3 Weight 177 lb Intake: IV Fluids 2128 ABX - CEFEPIME KVO 224 LR 1784 NS (0.9%) 120 IVPB 382 ABX - AZITHROMYCIN ABX - CEFEPIME 50 KVO 332 NS (0.9%) Medicated IV 878.3 CC - Propofol/Diprivan 649 CC - Vecuronium 166 versed 63.3 Oral 0 Output: Urine 225 Phan 775 Residual Coude 16 Fr Labs: 11/10/17 11/10/17 11/10/17 05:40 05:40 07:43 WBC 13.3 Hgb 10.9 L Hct 32 L Plt Count 173 Sodium 139 Potassium TNP 4.3 Chloride 105 Carbon Dioxide 30 BUN 12 Creatinine 0.58 L Glucose 92 Calcium 8.3 L Troponin I 1.38 Studies: CXR: Marked improvement (reduced infiltrates) Nutrition: Tube feedings Impression: Clinically improving, although still no pathogen isolated. Plan: Reduce sedation and start to taper APRV (i.e., reduced inflation pressures and longer time for inflation). Will also try to balance I & Os. Critical Care Time: 55 minutes
[2017-11-10] MEDS ORDERED: Furosemide IV* 10 MG/ML 2 ML VIAL (20 MG) IV ONE (14:37)
[2017-11-10] MEDS: Azithromycin IV(*) 500 MG in NS 0.9% 250 ML* 250 ML IVPB SCH (18:22)
[2017-11-11] MEDS ORDERED: Morphine INJ* 2 MG/ML 1 ML CARPUJECT ONE (00:44)
[2017-11-11] MEDS: Morphine INJ* 2 MG/ML 1 ML SYRINGE (TWO MG - NEW SYRINGE VERSION) IV PRN (00:46)
[2017-11-11] MEDS ORDERED: Midazolam PREMIX BAG 1 MG/ML* 100 MG/100 ML BAG IV SCH (02:09)
[2017-11-11] MEDS: Propofol* 1000 MG (10 MG/ML 100 ml) @ Per Protocol (in ICU Pyxis) IV SCH ×9 (03:04→23:44)
[2017-11-11] MEDS: Chlorhexidine MOUTHWASH 0.12%* 15 ML UDC TOPICAL SCH ×6 (03:07→23:47)
[2017-11-11] MEDS: Morphine INJ* 2 MG/ML 1 ML CARPUJECT IV PRN ×4 (03:15→22:06)
[2017-11-11] MEDS: Albuterol/Ipratropium NEB.SOL* Albuterol 2.5 MG/Ipratropium 0.5 MG 3 ML INH SCH ×2 (03:33→15:46)
[2017-11-11] MEDS: Metoprolol Tartrate TAB* 25 MG FEED TUBE SCH ×2 (05:32→20:17)
[2017-11-11] MEDS: methylPREDNISolone SOD 40 MG* 1 ML VIAL IV SCH (08:40)
[2017-11-11] MEDS: Famotidine IV* 10 MG/ML 2 ML (20 mg) IV SCH (08:44)
[2017-11-11] MEDS: Cefepime 2 GM in Dextrose(*) 2 GM/50 ML BAG IV SCH (10:36)
--- NOTE | 2017-11-11 10:53 | PN ---
Subjective Date of Service: 11/11/17 Interval History: f/u [place] no culprit, suspect infectious related myocarditis Intubated, sedated Has been receiving metoprolol troponin continues downward trend ST elevation resolved on this AM's EKG No arrhythmias last 24 hours Medications Active Medications: Albuterol/Ipratropium (Duoneb (Albuterol 2.5 Mg/Ipratropium 0.5 Mg)) 1 neb INH Q4H [facility] Last Admin: 11/11/17 03:33 Dose: 1 neb Chlorhexidine Gluconate (Peridex Mouth Wash 0.12%*) 15 ml TOPICAL Q4H [facility] Last Admin: 11/11/17 05:32 Dose: 15 ml Enoxaparin Sodium (Lovenox(*)) 40 mg SUBCUT Q24H [facility] Last Admin: 11/10/17 11:34 Dose: 40 mg Famotidine (Pepcid Iv*) 20 mg IV DAILY [facility] Last Admin: 11/11/17 08:44 Dose: 20 mg Cefepime HCl (Maxipime 2 Gm In Dextrose Duplex (*)) 2 gm in 50 mls @ 100 mls/ hr IV Q12H [facility] Last Admin: 11/11/17 10:36 Dose: 100 mls/hr Azithromycin 500 mg/ Sodium (Chloride) 250 mls @ 250 mls/hr IVPB 1800 [facility] Last Admin: 11/10/17 18:22 Dose: 250 mls/hr Fentanyl Citrate (Fentanyl Associate Director Of Biostatistics*) 20 mls @ 2 mls/hr FAST FOOD SERVER .change Q24H TO[facility]; 100 MCG/HR PRN Reason: Protocol Last Admin: 11/10/17 07:47 Dose: 2 mls/hr Propofol (Diprivan*) 100 mls @ 0 mls/hr IV .(Initial Rate) TOYA; 0 MCG/KG/MIN PRN Reason: Protocol Last Admin: 11/11/17 10:34 Dose: 28.1 mls/hr Lactated Ringer's (Lactated Ringers 1000 Ml Bag*) 1,000 mls @ 25 mls/hr IV PER RATE [facility] Last Admin: 11/11/17 03:05 Dose: 25 mls/hr Midazolam HCl (Versed Premix Bag 1 Mg/Ml*) 100 mg in 100 mls @ 4 mls/hr IV .Q24HR [facility]; 4 MG/HR PRN Reason: Protocol Methylprednisolone Sodium Succinate (Solu-Medrol 40 Mg) 50 mg IV DAILY [facility] Last Admin: 11/11/17 08:40 Dose: 50 mg Metoprolol Tartrate (Lopressor Tab*) 25 mg FEED TUBE Q6H [facility] Last Admin: 11/11/17 05:32 Dose: 25 mg Morphine Sulfate (Morphine Inj (Syringe)*) 2 mg IV Q2H PRN PRN Reason: DISCOMFORT Last Admin: 11/11/17 05:52 Dose: 2 mg Objective Vital Signs: Temp Pulse Resp BP Pulse Ox 98.2 F 64 17 128/81 95 11/11/17 07:45 11/11/17 10:00 11/11/17 10:00 11/11/17 10:00 11/11/17 10:00 Oxygen Devices in Use Now: Endotracheal Tube, Mechanical Ventilator Appearance: intubated, sedated Neck: Trachea Midline, - Respiratory: - - transmitted and coarse diffuse breath sounds, no obvious wheeze Cardiovascular: RRR, No Edema, - - uncertain jvp Abdominal: NL Sounds; No Tenderness; No Distention Extremities: No Edema, No Clubbing, Cyanosis Skin: No Rash or Ulcers Neurological: - - sedated Laboratory Results: 11/10/17 05:40 11/10/17 07:43 Total Bilirubin 0.70 mg/dL (0.2-1.0) 11/08/17 05:20 AST 81 U/L (13-39) H 11/08/17 05:20 ALT 28 U/L (7-52) 11/08/17 05:20 Alkaline Phosphatase 69 U/L (34-104) 11/08/17 05:20 CK-MB (CK-2) 48.4 ng/mL (0.6-6.3) H 11/09/17 05:23 B-Natriuretic Peptide 153 pg/mL (-100) H 11/07/17 09:16 Total Protein 5.9 g/dL (6.4-8.9) L 11/08/17 05:20 Albumin 3.4 g/dL (3.2-5.2) 11/08/17 05:20 Globulin 2.5 g/dL (2-4) 11/08/17 05:20 Albumin/Globulin Ratio 1.4 (1-3) 11/08/17 05:20 0111/08/17 11/08/17 11:45 17:40 23:00 Troponin I 0.05 H* 4.47 H* 3.20 H* 11/09/17 11/10/17 11/11/17 05:23 05:40 05:40 Troponin I 2.15 H* 1.38 H* 0.68 H* Diagnostic Imaging: Coronary angiogram 11/08/2017: No CAD Echocardiogram 11/08/2017: LVEF 50-55% with severe hypokinesis to akinesis of basal inferior and inferolateral wall, no significant valvular disease noted. EKG Data: EKG 11/08/2017: NSR, Inferoposterior STEMI. Repeat post-angiogram showing no CAD (grossly unchanged) Assessment/Plan Ayaz Avila is a 46 year old man admitted with severe bilateral pneumonia/ ARDS with suspected infectious related myocarditis of the basal inferior and inferolateral wall, cTNI peaked 4.5, LVEF 50-55%, overall stable from a cardiac standpoint - Continue metoprolol, decrease to BID (ordered), would prescribe at discharge and repeat a limited echo for LVEF/wall motion in 1 month - Overall medical care per Electron Beam Operator Thank you for allowing me to participate in the cardiovascular care of this patient. Please do not hesitate to contact me with questions or concerns.
[2017-11-11] MEDS: Enoxaparin(*) 40 MG/0.4 ML SYR SUBCUT SCH (11:29)
--- NOTE | 2017-11-11 12:46 | RAD ---
INDICATION: Respiratory distress. Intubated COMPARISON: November 10, 2017 TECHNIQUE: An AP portable view obtained at 1155 hours is submitted. FINDINGS: Bones/Soft Tissues: There are no acute bony findings. Their various tubes and catheters. The endotracheal tube is unchanged in position approximately 5 cm above the elder. Nasogastric tube passes normally through the mediastinum. There is a [place] catheter unchanged in position. There are overlying chest leads. Cardiomediastinal: The cardiomediastinal silhouette is normal. Lungs: The bilateral interstitial and alveolar infiltrates. There is minor interval improvement. Pleura: There are no pleural effusions. Other: None IMPRESSION: BILATERAL INFILTRATES WITH MILD IMPROVEMENT
--- NOTE | 2017-11-11 13:38 | PN ---
Critical Care Services: Patient continues to improve, but still on the ventilator. We have changed from APRV to conventional pressure-controlled ventilation Vital Signs: Temp Pulse Resp BP SpO2 FiO2 98.2 F 75 43 137/91 96 30 NOTE: FIO2 down to 30% Physical Exam: Gen:Unresp[onsive (on propofol and midazolam) HEENT:Pupils midposition and reactive Lungs: Clear Extremities: No cyanosis or edema Fluid Balance (Past 24 Hours): 11/11/17 06:59 Intake Total 3158 Output Total 2400 Balance +758 Weight 177 lb Intake: IV Fluids 1056 ABX - CEFEPIME KVO 331 LR 725 NS (0.9%) IVPB 405 ABX - CEFEPIME 55 KVO 350 NS (0.9%) Medicated IV 812 CC - Propofol/Diprivan 812 IV Narcotic Infusion 74 Versed 74 Oral Tube Feeding 751 Tube Feeding Flush Amount 60 Output: Urine Phan 2400 Labs: 11/11/17 05:40 Troponin I 0.68 H* Studies: CXR shows almost complete clearing of infiltrates (!) Sputum culture growing normal zaid. Blood cultures negative. Nutrition: Tube feedings Impression: 1. Markedly improved, but still not ready for return to spontaneous breathing because of the high resp rate (> 40 bpm). 2. No evidence of a treatable infection Plan: 1. Continue mechanical ventilation with APRV, and assess for weaning tomorrow. 2. D/C antibiotics Critical Care Time: 40 minutes
[2017-11-11] MEDS ORDERED: Albuterol 2.5 MG/3 ML NEB.SOL* (0.083%) INH PRN (15:45)
[2017-11-12] MEDS: Propofol* 1000 MG (10 MG/ML 100 ml) @ Per Protocol (in ICU Pyxis) IV SCH ×4 (02:05→10:05)
[2017-11-12] MEDS: Chlorhexidine MOUTHWASH 0.12%* 15 ML UDC TOPICAL SCH ×4 (03:30→14:43)
[2017-11-12 05:22] LABS: EGFR Non-African American 141.1 (>60); Hematocrit 34 % (42-52); Hemoglobin 11.2 g/dl (14.0-18.0); Mean Corpuscular HGB Conc 33 g/dl (31-36); Mean Corpuscular Hemoglobin 29 pg (27-31); Mean Corpuscular Volume 87 fL (80-94); Mean Platelet Volume 8 um3 (7.4-10.4); Platelet Count 215 10^3/ul (150-450); Red Blood Count 3.94 10^6/ul (4.0-5.4); Red Cell Distribution Width 15 % (10.5-15); White Blood Count 12.7 10^3/ul (3.5-10.8)
[2017-11-12] MEDS: Morphine INJ* 2 MG/ML 1 ML CARPUJECT IV PRN (05:31)
--- NOTE | 2017-11-12 08:24 | RAD ---
INDICATION: Pneumonia versus ARDS COMPARISON: Most recent comparison chest x-rays dated November 11, 2017 TECHNIQUE: Single AP portable view of the chest was obtained. FINDINGS: Image quality is compromised due to the relative inferiority of a portable chest x-ray. Previously placed lines and tubes remain appropriately positioned. The heart and mediastinum exhibit normal size and contour. The lungs are grossly clear. There is no evidence of a large pleural effusion. Visualized bones are normal for the patient's age. IMPRESSION: Continued improving aeration when compared to recent previous chest x-rays.
[2017-11-12] MEDS: methylPREDNISolone SOD 40 MG* 1 ML VIAL IV SCH (09:00)
[2017-11-12] MEDS: Famotidine IV* 10 MG/ML 2 ML (20 mg) IV SCH (09:00)
[2017-11-12] MEDS: Metoprolol Tartrate TAB* 25 MG FEED TUBE SCH ×2 (09:01→22:51)
[2017-11-12] MEDS ORDERED: LORazepam INJ* 2 MG/ML 1 ML VIAL IV PUSH PRN (10:42)
[2017-11-12] MEDS: Enoxaparin(*) 40 MG/0.4 ML SYR SUBCUT SCH (12:14)
[2017-11-12] MEDS ORDERED: Haloperidol INJ IV/IM* 5 MG/ML AMP IV SLOW PU PRN (13:58)
[2017-11-12] MEDS ORDERED: Haloperidol INJ IV/IM* 5 MG/ML AMP ONE (14:00)
--- NOTE | 2017-11-12 15:20 | PN ---
Critical Care Services: Weaned and extubated this AM. Currently on O2 by mask, with SpO2 in mid-90s. Vital Signs: Temp Pulse Resp BP SpO2 FiO2 99.8 F 79 16 153/102 95 70 Physical Exam: Gen:Somnolent but arousable. Lungs:clear Extremities:No cyanosis or edema. Fluid Balance (Past 24 Hours): 11/12/17 06:59 Intake Total 2457 Output Total 1950 Balance +507 Weight 180 lb Intake: IV Fluids 744 KVO 197 LR 547 NS (0.9%) IVPB 70 ABX - CEFEPIME KVO 70 Medicated IV 786 CC - Propofol/Diprivan 786 CC - Vecuronium versed IV Narcotic Infusion 148 Versed 148 TPN/PPN 510 Oral 0 Tube Feeding 199 Tube Feeding Flush Amount Output: Urine Phan 1950 Labs: 11/12/17 11/12/17 04:55 04:55 WBC 12.7 RBC 3.94 Hgb 11.2 Hct 34 Plt Count 215 Sodium 140 Potassium 3.9 Chloride 102 Carbon Dioxide 36 BUN 16 Creatinine 0.61 BUN/Creatinine Ratio 26.2 Glucose 110 Calcium 8.5 NOTE: On steroids Studies: CXR: Lung hughes CLEAR!! Nutrition: Will start oral feedings Impression: Marked improvement. Complete clearing of infiltrates in 4-5 days is unexpected with a pneumonia, so is it possible the patient had flash pulmonary edema from the myocarditis. The normal wedge pressure is against this (but doesn't rule it out). Plan: General supportive care. (Patient is off antibiotics.) Taper O2 off as tolerated. Will transfer out of ICU tomorrow. Critical Care Time: 45 minutes (including time for extubation).
[2017-11-12] MEDS ORDERED: Morphine INJ* 4 MG/ML 1 ML CARPUJECT IV PRN (19:36)
[2017-11-13] MEDS: Metoprolol Tartrate TAB* 25 MG FEED TUBE SCH (08:14)
[2017-11-13] MEDS: Famotidine IV* 10 MG/ML 2 ML (20 mg) IV SCH (08:14)
[2017-11-13] MEDS ORDERED: Metoprolol Tartrate TAB* 25 MG PO ONE (10:22)
--- NOTE | 2017-11-13 11:40 | PN ---
Progress Note - Progress Note Date of Service: 11/13/17 Note: CRITICAL CARE MEDICINE Date: 11/13/17 Time: 1000 SUBJECTIVE: Patient seen and examined. PHYSICAL EXAM: Vital Signs: Reviewed. Neurologic: stable. communicating HEENT: pupils equal. Sclera anicteric. Trachea midline. Cardiovascular: S1 S2, Hr 90s Respiratory: mild rale on R Abdomen: Soft, nt. No r/g/r. Extremities: Warm. Access: RIJ, mercado LABS: Reviewed. IMAGING: Reviewed. MEDICATIONS: Reviewed. ASSESSMENT: 46 M Acute viral myocarditis - recovering Acute hypoxic resp failure - resolved Post viral pna/ali? - recovering PLAN: doing well. dc mercado. dc central line. dc H2. Inc bb slightly. cards f/u - +/- acei needs? Lovenox prophylaxis. oob. inc strength. dc planning soon. Supportive and preventative care as ordered. Disposition: tele Code Status: Full Critical Care Time: 25min Nikolai Cobian DO
[2017-11-13] MEDS ORDERED: Ibuprofen TAB* 600 MG PO PRN (11:57)
[2017-11-13] MEDS ORDERED: Acetaminophen TAB* 325 MG PO PRN (11:58)
[2017-11-13] MEDS: Enoxaparin(*) 40 MG/0.4 ML SYR SUBCUT SCH (12:30)
[2017-11-13] MEDS: Metoprolol Tartrate TAB* 25 MG PO SCH (20:54)
[2017-11-14] MEDS: Metoprolol Tartrate TAB* 25 MG PO SCH (08:04)
[2017-11-14] MEDS ORDERED: Simethicone TAB* 80 MG TAB.CHEW PO PRN (11:18)
[2017-11-14] MEDS: Enoxaparin(*) 40 MG/0.4 ML SYR SUBCUT SCH (12:02)
[2017-11-14] MEDS ORDERED: Magnesium Hydroxide LIQ* 30 ML UDC PO ONE (14:47)
[2017-11-14 17:16] VITALS: BP 120/84
--- NOTE | 2017-11-15 12:17 | DS ---
CC: [facility]; Dr. Prakash Herrera; Dr. Deejay Herrera; Dr. Mcneil; Dr. Gaona * DISCHARGE SUMMARY: DATE OF ADMISSION: 11/07/17 DATE OF DISCHARGE: 11/14/17 PRIMARY CARE PROVIDER: [facility]. DISCHARGE DIAGNOSES: 1. Acute respiratory distress syndrome due to bilateral pneumonia, suspect a viral source. 2. ST-elevation EKG changes due to myocarditis secondary to viral infection further unidentified. 3. Status post cardiac catheterization on 11/08/17 for acute respiratory failure. MEDICATIONS AT DISCHARGE: Include: 1. Simethicone 80 mg every 6 hours p.r.n. 2. Metoprolol tartrate 50 mg b.i.d. 3. Erythromycin ointment for application on right eye as previously taken. 4. Cymbalta 30 mg b.i.d. 5. Aspirin 81 mg daily. 6. Artificial tears to bilateral eyes p.r.n. 7. Acetaminophen on a p.r.n. basis. CONSULTATIONS DURING THE HOSPITAL STAY: Included: 1. Cardiology, Dr. Gaona and Dr. Deejay Herrera. 2. Infectious Diseases, Dr. Mcneil. 3. Intensivists, Dr. Cobian and Dr. Prakash Herrera. PROCEDURES DURING THE HOSPITAL STAY: Included cardiac catheterization, on 11/08, which showed no obstructive coronary artery disease and no angiographic evidence of culprit lesion. Probable inferior wall motion abnormality. Suspected myocarditis and no evidence of acute infarct. The patient was intubated while in the intensive care unit. LABORATORY DATA PERFORMED DURING THE HOSPITAL STAY: Included: On 11/12/17, white blood cell count of 12.7, hemoglobin of 11.2, hematocrit of 34, and platelets of 215. Sodium was 140, potassium 3.9, chloride 102, carbon dioxide 36, BUN 16, creatinine 0.6. The patient's troponin peaked at 3.2 on 11/08/17. Serology showed positive legionella antibody, negative influenza A and B, nonreactive HIV. Microbiology studies were positive for legionella and Strep pneumo antigens in urine. Blood cultures were negative. Influenza test was negative. Most recent portable chest x-ray obtained on 11/12/17, impression: "Continued improving aeration when compared to recent previous chest x-rays." Chest x-ray from admission, impression: "No typical consolidation throughout both lungs." Transthoracic echocardiogram obtained on 11/08/17, impression: "EF of 50% to 55 %. There was severe hypokinesis and akinesis of the inferolateral and basal inferior wall. Right ventricular chamber function size and systolic function are within normal limits. There was mild concentric LVH. There was evidence of mild pulmonary hypertension." HOSPITALIZATION COURSE: Ayaz Avila is a 46-year-old male with history of depression, who presented from [facility] in acute respiratory distress. The patient was intubated after he developed ARDS from bilateral pneumonia, which appeared to be viral. Nevertheless, the patient was treated with broad-spectrum antibiotics. Dr. Mcneil saw the patient in Infectious Diseases consultation and guided his antibiotic treatment. The patient also complained of chest pain on presentation and at some point during his initial 24 hours of hospital stay, he developed ST elevation and EKG changes and was taken to the carpenter labor supervisor. He was noted to have inferior wall abnormality on echocardiogram, but no evidence of obstructive coronary artery disease. His troponin peaked a little bit above 3. It was noted that the patient likely has myocarditis related to ongoing viral infection. His microbiology studies were positive for legionella antibody in serology, but negative for legionella antigen in the urine, which was not conclusive of acute infection. The patient's ARDS improved over the course of several days and the patient was extubated on 11/12/17 and he was oxygenating fine on room air at that point. At the time of discharge, the patient has not had a bowel movement for a couple of days and complained of diffuse abdominal "gas pain." He was given milk of magnesia prior to his discharge. He ambulated without support prior to discharge back to senior care. PHYSICAL EXAMINATION AT THE TIME OF DISCHARGE: Blood pressure of 129/90, heart rate of 71 and regular, respiratory rate 16, oxygen saturation 94% on room air, temperature 98.8. General: The patient is a very pleasant 46-year-old male, who is in no acute distress. Alert, awake, and oriented x3. HEENT: Head, atraumatic, normocephalic. Eyes: Pupils are equal and reactive to light and accommodation. Oropharynx clear. Mucosa moist. Neck: Supple. No JVD. No bruits bilaterally. Cardiovascular: Regular rate and rhythm. No murmur. Respiratory: Clear to auscultation bilaterally. Abdomen: Soft and nontender. Bowel sounds present in all 4 quadrants. Extremities: There is no edema. Pulses +2 bilaterally. No clubbing or cyanosis. On neuro evaluation, speech clear. Cranial nerves II through XII grossly intact. Motor strength is 5/5 bilaterally. At discharge, the patient is recommended to follow up with his primary care provider in approximately 4 to 7 days. He is to ambulate as tolerated and continue on cardiac diet. The patient is to follow up with cardiology group at [place]. The patient usually gets to in approximately 1 month for repeat echocardiogram. He is to continue on his metoprolol and baby aspirin for the time being. Please note that this is short summary of the patient's hospitalization, please refer to further medical records for details. TIME SPENT: Approximately 40 minutes was spent on the patient's discharge. [id number]/[facility] #: [id number] AWA
== END 2017-11-14 19:50 | DRG 133 ==
LOC: ED 09:02 → EEVIPCON 10:03 → ICU 10:03 → MEDTELE 11-13 11:40
PROVIDERS: ADMIT Internal Medicine Critical Care Medicine; ATTEND Internal Medicine
PROC: B2111ZZ Fluoroscopy of Multiple Coronary Arteries using Low Osmolar Contrast (ICD-10-PCS; 2017-11-08)
PROC: B2151ZZ Fluoroscopy of Left Heart using Low Osmolar Contrast (ICD-10-PCS; 2017-11-08)
PROC: 0BH17EZ Insertion of Endotracheal Airway into Trachea, Via Natural or Artificial Opening (ICD-10-PCS; 2017-11-08)
PROC: 5A1945Z Respiratory Ventilation, 24-96 Consecutive Hours (ICD-10-PCS; 2017-11-08)
PROC: 4A023N8 Measurement of Cardiac Sampling and Pressure, Bilateral, Percutaneous Approach (ICD-10-PCS; principal; 2017-11-08 14:45)
DX: J96.00 Acute respiratory failure, unspecified whether with hypoxia or hypercapnia (principal); I21.19 ST elevation (STEMI) myocardial infarction involving other coronary artery of inferior wall; I40.8 Other acute myocarditis; J12.9 Viral pneumonia, unspecified; I27.20 Pulmonary hypertension, unspecified; I47.1 Supraventricular tachycardia; F32.9 Major depressive disorder, single episode, unspecified; Z79.82 Long term (current) use of aspirin; R14.1 Gas pain
CPT/HCPCS: 36415; 36600; 71045; 80048; 80053; 81003; 82550; 82553; 82803; 83605; 83880; 84484; 85025; 85027; 86140; 86703; 86713; 87040; 87070; 87205; 87502; 87641; 87899; 93005; 93306; 93460; 94002; 94003; 94640; 94760; 99406; A9270-GY; C1887; J0330; J0456; J0461; J0692; J1630; J1644; J1650; J1940; J2060; J2250; J2270; J2543; J2704; J2920; J2930; J3010; J3475; J3490; J7512